=== PATIENT | male | born 1935 | race Caucasian/White ===

== ENCOUNTER 2017-01-29 10:23 | Emergency (ER) | payer OTHER, BC ==
[~2017-01-29] VITALS: Ht 170.2 cm; Wt 80.0 kg
[~2017-01-29 10:23] MED LIST: ALLO300T2 PO; ASPI-664 PO; ATEN50TA PO; LOSA50TA6 PO; LYR75 PO; MULT-860 PO; PANT40TA4 PO; SAW/1TAB2 PO; TAMS0.4C2 PO; VIT-6 PO; [UNRECOGNIZED DRUG - OTHER] PO
[2017-01-29 10:36] VITALS: Ht 170.2 cm; Wt 80.0 kg
[2017-01-29] MEDS ORDERED: SOD CHLORIDE 0.9% 1,000 ML IV STA (11:09)
[2017-01-29] MEDS ORDERED: morphine 4 MG/ML VIAL IV STA (11:09)
--- NOTE | 2017-01-29 12:23 | RADRPT ---
PROCEDURE: Left Shoulder Series CLINICAL INDICATION: Left shoulder dislocation. Pain. TECHNIQUE: 2 views of the left shoulder are available for review. COMPARISON: None available FINDINGS: There is malalignment of the left glenohumeral joint which is not well evaluated on this study. Ther e is apparent superior subluxation of the humerus with respect to the glenoid. There is no definitiv e anterior or posterior dislocation on the scapular Y view. There is no evidence of acute fracture. The visualized left chest wall is within normal limits. IMPRESSION: 1. Left glenohumeral malalignment without definitive anterior for posterior dislocation. There is pedersen perior subluxation of the humeral head with respect to the acromion. Recommend CT scan for further e valuation. RPTAT: AA .Davis Lind MD, Date Time Electronically viewed and signed by .Davis Lind MD, on 01/29/2017 12:23 .B/
--- NOTE | 2017-01-29 13:20 | ERD ---
ER Documentation Chief Complaint Date/Time DATE: 01/29/17 TIME: 13:18 Chief Complaint LT ARM, HIP, SIDE, LEG PAIN S/P GROUND LEVEL MECHANICAL FALL YESTERDAY HPI This is an 81-year-old male who presents to the emergency room for evaluation of left shoulder and arm pain after a ground-level fall. The patient states that he had a ground-level fall yesterday, denies hitting his head or loss of consciousness and came to the ER today for evaluation. He is stating that he has pain in his left shoulder which is worse with movement. The patient denies any numbness or tingling in his arm or hand and came to the ER for evaluation ROS All systems reviewed and are negative except as per history of present illness. Medications Home Meds Reported Medications Vit A/C/E AC/Znox/Cupric Oxide (Eye Vitamin-Minerals Tablet) 1 Each Tablet, 1 EACH PO BID, TAB 07/04/16 [Wyatt Red Vitamin B] No Conflict Check, 1 TAB PO DAILY 07/04/16 Saw/Vit E/Sod Vesta/Lyc/Beta/Pyg (Prostate Health Caplet) 1 Each Tablet, 1 EACH PO DAILY, TAB 07/04/16 Mu-Vits-Min Th/Lycopene/Lutein (CENTRUM SILVER TABLET) 1 Each Tablet, 1 EACH PO BID, TAB 07/04/16 Pregabalin* (Lyrica*) 75 Mg Capsule, 75 MG PO BID, CAP 07/04/16 Tamsulosin Hcl* (Tamsulosin Hcl*) 0.4 Mg Cap.er.24h, 0.4 MG PO DAILY, CAP 07/04/16 Allopurinol* (Allopurinol*) 300 Mg Tablet, 300 MG PO DAILY, TAB 07/04/16 Pantoprazole* (Pantoprazole*) 40 Mg Tablet.dr, 40 MG PO DAILY, TAB 07/04/16 Losartan Potassium* (Losartan Potassium*) 50 Mg Tablet, 50 MG PO BID, TAB 07/04/16 Atenolol* (Atenolol*) 50 Mg Tablet, 50 MG PO BID, #60 TAB 07/04/16 Aspirin* (Aspirin* EC) 81 Mg Tablet.dr, 81 MG PO DAILY, TAB 07/04/16 Allergies Allergies: Coded Allergies: No Known Drug Allergies (Verified Allergy, Unknown, 07/04/16) PMhx/Soc Medical and Surgical Hx: pt denies Surgical Hx History of Surgery: No Anesthesia Reaction: No Hx Neurological Disorder: No Hx Respiratory Disorders: No Hx Cardiac Disorders: Yes (HTN) Hx Psychiatric Problems: Yes (ANXIETY) Hx Miscellaneous Medical Probl: Yes (HIGH CHOLESTEROL, PROSTATE) Hx Alcohol Use: No Hx Substance Use: No Hx Tobacco Use: No Smoking Status: Never smoker Physical Exam Vitals Vital Signs Date Time Temp Pulse Resp B/P Pulse Ox O2 Delivery O2 Flow Rate FiO2 01/29/17 10:36 98.2 58 20 147/73 95 Physical Exam INITIAL VITAL SIGNS: Reviewed by me GENERAL: The patient is well developed and appropriate for usual state of health in no apparent distress HEENT: Pupils equal, round, and reactive to light. EOMI. There is no scleral icterus. NECK: C-spine is soft and supple, there is no meningismus. There is no cervical lymphadenopathy. LUNGS: Clear to auscultation bilaterally. There are no rales, wheezes or rhonchi. HEART: Regular rate and rhythm, no murmurs, clicks, rubs or gallops. ABDOMEN: Soft, non-tender, non-distended. There are bowel sounds in all four quadrants. No rebound or guarding. EXTREMITIES: Ecchymosis noted over the left shoulder, no gross deformity, there is no peripheral cyanosis or edema. No focal swelling or erythema. NEUROLOGICAL: The patient moves all four extremities with 5/5 strength. Cranial nerves II - XII are intact. Normal gait. Alert and oriented SKIN: There is no apparent rash or petechiae. HEME/LYMPHATIC: There is no evidence of excessive bruising or lymphedema. PSYCHIATRIC: The patient does not appear anxious or depressed. Results 24 hrs Current Medications Medications (Trade) Dose Ordered Sig/[place] Route PRN Reason Start Time Stop Time Status Last Admin Dose Admin Morphine Sulfate 4 mg 4 mg ONCE STAT IV 01/29/17 11:09 01/29/17 11:11 DC 01/29/17 11:28 Sodium Chloride (NS) 1,000 ml @ 1,000 mls/hr Q1H STAT IV 01/29/17 11:09 01/29/17 12:08 DC 01/29/17 11:28 Procedures/MDM X-ray Shoulder 3V Interpreted by me: Bones: Left glenohumeral malalignment without definitive anterior for posterior dislocation. There is superior subluxation of the humeral head with respect to the acromion Joints: [No dislocation] Foreign body: [None] This 81-year-old male presents to the ER for evaluation of left-sided shoulder pain. When I evaluated this patient he did have ecchymosis over his left shoulder. An x-ray was obtained which does show glenohumeral malalignment without definitive dislocation. This patient was given no 4 mg of morphine for pain control and when I went back into the patient's room the patient states he is feeling much better. The patient has full range of motion in abduction, abduction, external rotation, internal rotation, flexion, and extension. He has sensation over the deltoid, and states is feeling better. This patient was placed in a left arm sling and will be discharged home with a prescription for Motrin, and Tylenol with codeine for breakthrough pain. A left shoulder sling splint was applied by the tech under my direct supervision. After splint application, the patient was appreciated to have a normal distal neurovascular examination. Departure Diagnosis: Primary Impression: Contusion of left shoulder Condition: Stable TEMO LEONG DO Jan 29, 2017 13:20
[2017-01-29] MEDS ORDERED: IBUP800T25 PO (13:22)
[2017-01-29] MEDS ORDERED: ACET1TAB40 PO (13:22)
[2017-01-29 13:38] VITALS: BP 131/80; PULSE 58; RESP 20; TEMP 98.2
== END 2017-01-29 13:40 | disposition home or self-care (01) ==
LOC: E/R 10:23
DX: S40.012A Contusion of left shoulder, initial encounter (principal); I10 Essential (primary) hypertension; W18.39XA Other fall on same level, initial encounter; Y92.9 Unspecified place or not applicable; Z79.82 Long term (current) use of aspirin
CPT/HCPCS: 73030; 96374; 99284; J2270; J7030